=== PATIENT | male | born 1960 | race Caucasian/White ===

== ENCOUNTER 2019-03-31 21:37 | Inpatient (IN) ==
[2019-03-31] MEDS ORDERED: ASPIRIN 81 MG CHEW PO STA (22:11)
[2019-03-31] MEDS ORDERED: MoRPHine SULFATE 4 MG/ML 1 ML CARP\\VIAL IV STA (22:11)
[2019-03-31] MEDS ORDERED: NITROGLYCERIN SL 0.4 MG/TAB TAB SL STA ×3 (22:11→22:30)
[2019-03-31] MEDS ORDERED: CLOPIDOGREL BISULFATE 300 MG TAB PO STA (22:13)
[2019-03-31] MEDS ORDERED: HEPARIN IV BOLUS 5,000 UNITS in SYRINGE 0 ML IV ONE (22:15)
--- NOTE | 2019-03-31 22:21 | Emergency Department Note ---
History of Present Illness General Chief complaint: Chest Pain Stated complaint: CHEST PAIN, PRESSURE, SOB Time Seen by Provider: 03/31/19 22:06 History of Present Illness Maximum Pain Intensity: 8 This is a 58 year old male who presents to the ED via private vehicle with PMHx of Htn and DM, with complaints of "Chest pain". He has not felt well over the past few days and then this evening around 7pm he had chest pain that has gradually increased over time. He rates the pain as an 8/10. No hx of MN. No fevers or chills. He has never felt like this before. He notes minimal shortness of breath. It is substernal in nature and radiates to the bilateral shoulders. He notes that his blood pressures have been appropriate lately. Home Medications Home Medications Medication Instructions Recorded Confirmed Type acetaminophen [Tylenol Extra 500 mg PO DIRECTED PRN 03/31/19 03/31/19 History Strength] insulin glargine [Basaglar KwikPen 48 unit SUBCUT BID 03/31/19 03/31/19 History U-100 Insulin] lisinopril 10 mg PO QPM 03/31/19 03/31/19 History metformin 1,500 mg PO QAM 03/31/19 03/31/19 History rosuvastatin 20 mg PO QPM 03/31/19 03/31/19 History semaglutide [Ozempic] 0.5 mg SUBCUT WK 03/31/19 03/31/19 History Allergies Allergy/AdvReac Type Severity Reaction Status Date / Time No Known Allergies Allergy Verified 03/31/19 22:15 Past Med/Surg History Medical History Diabetes HTN (hypertension) Surgical History H/O colonoscopy Social History Preferred Language: Sami Communication Ability: Effective Unix Manager Required: No Beliefs That Will Affect Care: None Current Living Situation: Alone Other Information That Helps Us Care for You: No Feels Safe at Home: Yes Smoking Status: Never smoker Do You Dip or Chew Tobacco: No ; Second Hand Exposure: No ; Tobacco Cessation Education Requested by Patient: No Hx Alcohol Use: No Hx Substance Use: No Review of Systems A total of 10 systems reviewed and were otherwise negative Physical Exam Vital Signs Vital Signs - 24 hr 03/31/19 21:38 03/31/19 21:50 03/31/19 21:51 Temperature 36.8 C Temperature Source Oral Sepsis Recent Fever Within 48 Hours No Sepsis Action Taken by Nursing No Action Required Pulse Rate 59 L 99 H 103 H Pulse Rate from SpO2 Sensor 101 H 97 H Respiratory Rate 18 24 19 Respiratory Effort / Characteristics Non-Labored Respiratory Depth Normal Blood Pressure 202/125 H 218/127 H Blood Pressure Mean 150 157 Pulse Oximetry 95 96 97 Oxygen Delivery Method Room Air Oxygen Flow Rate 03/31/19 22:00 03/31/19 22:02 03/31/19 22:15 Temperature Temperature Source Sepsis Recent Fever Within 48 Hours Sepsis Action Taken by Nursing Pulse Rate 118 H 151 H 96 H Pulse Rate from SpO2 Sensor Respiratory Rate 28 H 26 H Respiratory Effort / Characteristics Respiratory Depth Blood Pressure 213/165 H 213/126 H 179/125 H Blood Pressure Mean 181 155 143 Pulse Oximetry 96 Oxygen Delivery Method Nasal Cannula Oxygen Flow Rate 2 03/31/19 22:30 03/31/19 23:29 Temperature Temperature Source Sepsis Recent Fever Within 48 Hours Sepsis Action Taken by Nursing Pulse Rate 101 H 86 Pulse Rate from SpO2 Sensor 95 H Respiratory Rate Respiratory Effort / Characteristics Respiratory Depth Blood Pressure 153/96 H 177/100 H Blood Pressure Mean 115 Pulse Oximetry 96 Oxygen Delivery Method Oxygen Flow Rate VITAL SIGNS - Vital signs and nursing notes were reviewed. Stable and afebrile. GENERAL -58-year-old male appearing his stated age who is in no acute distress but has some increased respirations, and appears to be in pain. Communicates well with provider and answers questions appropriately. SKIN - Without rashes. No meningeal or petechial rash. HEAD - NC/AT. EYES - PERRL with EOMI bilaterally. Sclera anicteric. EARS - No deformities of external structures noted on gross examination bilaterally. MOUTH/OROPHARYNX - Without perioral cyanosis. NECK - Neck with FROM. LUNGS - Chest wall symmetric without accessory muscle use, intercostals retractions, or central cyanosis. Normal vesicular breath sounds CTA B/L. No wheezes, rales, or rhonchi appreciated. CARDIAC - RRR with S1/S2. No murmur, rubs, or gallops appreciated. ABDOMEN - Abdominal contour normal without pulsations or visible masses. BS normoactive all four quadrants. EXTREMITIES - No clubbing or peripheral cyanosis. No pretibial edema present. +5/5 strength noted in UE/LE bilaterally. NEUROLOGIC - Cranial nerves II through XII grossly intact. Sensory intact to light touch throughout. PSYCH - A&O, and cooperates fully with examiner. Pt is very pleasant and interacts well with examiner. Course Administered Medications Sodium Chloride (Nss 1000ml) 1,000 mls @ 100 mls/hr IV .Q10H SHAUN Stop: 04/01/19 06:29 Last Admin: 04/01/19 00:45 Dose: 100 mls/hr Documented by: [id number] Metoprolol Tartrate (Lopressor) 25 mg PO BID SHAUN Stop: 04/30/19 23:29 Last Admin: 04/01/19 00:44 Dose: 25 mg Documented by: [id number] Discontinued Medications Aspirin (Aspirin Chew) 324 mg PO NOW STA Stop: 03/31/19 22:12 Last Admin: 03/31/19 22:18 Dose: 324 mg Documented by: [id number] Clopidogrel Bisulfate (Plavix) 600 mg PO NOW STA Stop: 03/31/19 22:14 Last Admin: 03/31/19 22:18 Dose: 600 mg Documented by: [id number] Fentanyl Citrate (Fentanyl Citrate) Confirm Administered Dose 100 mcg .ROUTE .STK-MED ONE Stop: 03/31/19 22:31 Last Admin: 03/31/19 23:25 Dose: 50 mcg Documented by: [id number] Heparin Sodium (Porcine) (Heparin Sodium (Porcine)) Confirm Administered Dose 5,000 units .ROUTE .STK-MED ONE Stop: 03/31/19 22:23 Last Admin: 03/31/19 22:24 Dose: Not Given Documented by: [id number] Heparin Sodium (Porcine) (Heparin Iv Bolus (D[employer] Packing Machine Feeder Use Only)) Confirm Administered Dose 10,000 units .ROUTE .STK-MED ONE Stop: 03/31/19 22:30 Last Admin: 03/31/19 23:24 Dose: 7,000 units Documented by: [id number] Heparin Sodium/Sodium Chloride (Heparin/Nss 1000 Unit/500ml Flush Bag) Confirm Administered Dose 3,000 units IV .STK-MED ONE Stop: 03/31/19 22:31 Last Admin: 03/31/19 23:28 Dose: 3,000 units Documented by: [id number] Heparin Sodium (Porcine) 5,000 (units/ Syringe) 5 mls @ 10 mls/min IV ONE ONE Stop: 03/31/19 22:16 Last Admin: 03/31/19 22:23 Dose: 10 mls/min Documented by: [id number] Cosigned by: [id number] Metoprolol Tartrate (Lopressor) Confirm Administered Dose 5 mg IV .STK-MED ONE Stop: 03/31/19 23:09 Last Admin: 03/31/19 23:29 Dose: 5 mg Documented by: [id number] Midazolam HCl (Versed) Confirm Administered Dose 2 mg .ROUTE .STK-MED ONE Stop: 03/31/19 22:31 Last Admin: 03/31/19 23:28 Dose: 2 mg Documented by: [id number] Midazolam HCl (Versed) Confirm Administered Dose 2 mg .ROUTE .STK-MED ONE Stop: 03/31/19 22:58 Last Admin: 03/31/19 23:30 Dose: Not Given Documented by: [id number] Morphine Sulfate (Morphine Sulfate) 4 mg IV NOW STA Stop: 03/31/19 22:12 Last Admin: 03/31/19 22:19 Dose: 4 mg Documented by: [id number] Nicardipine HCl (Cardene) Confirm Administered Dose 25 mg .ROUTE .STK-MED ONE Stop: 03/31/19 22:30 Last Admin: 03/31/19 23:29 Dose: 25 mg Documented by: [id number] Nitroglycerin (Nitrostat) 0.4 mg SL NOW STA Stop: 03/31/19 22:12 Last Admin: 03/31/19 22:17 Dose: 0.4 mg Documented by: [id number] Nitroglycerin (Nitrostat) 0.4 mg SL NOW STA Stop: 03/31/19 22:23 Last Admin: 03/31/19 22:26 Dose: 0.4 mg Documented by: [id number] Nitroglycerin (Nitrostat) 0.4 mg SL NOW STA Stop: 03/31/19 22:31 Last Admin: 03/31/19 22:31 Dose: 0.4 mg Documented by: [id number] Nitroglycerin/Dextrose (Nitroglycerin/D5w 100 Mcg/Ml 20ml Syringe) Confirm Administered Dose 2,000 mcg .ROUTE .STK-MED ONE Stop: 03/31/19 22:32 Last Admin: 03/31/19 23:28 Dose: 2,000 mcg Documented by: [id number] Ticagrelor (Brilinta) Confirm Administered Dose 180 mg PO .STK-MED ONE Stop: 03/31/19 23:24 Last Admin: 03/31/19 23:29 Dose: 180 mg Documented by: [id number] Medical Decision Making Laboratory Data Result diagrams: 04/01/19 04:12 04/01/19 04:12 Lab Results 03/31/19 03/31/19 03/31/19 Range/Units 22:14 22:14 22:14 WBC 13.39 H (4.8-10.8) K/uL RBC 5.35 (4.7-6.1) M/uL Hgb 17.0 (14.0-18.0) g/dL POC Hgb (14.0-18.0) g/dl Hct 48.4 (42-52) % POC Hct (42-52) % MCV 90.5 (80-100) fL MCH 31.8 (25-34) pg MCHC 35.1 (32-36) g/dL RDW Std Deviation 43.9 (36.4-46.3) fL RDW Coeff of Summer 13.2 (11.5-14.5) % Plt Count 265 (130-400) K/uL MPV 10.3 (7.4-10.4) fL Immature Gran % (Auto) 0.4 % Neut % (Auto) 67.8 % Lymph % (Auto) 24.0 % Beadle % (Auto) 6.9 % Eos % (Auto) 0.6 % Baso % (Auto) 0.3 % Immature Gran # (Auto) 0.05 H (0.00-0.02) K/uL Neut # (Auto) 9.08 H (1.4-6.5) K/uL Lymph # (Auto) 3.21 (1.2-3.4) K/uL Beadle # (Auto) 0.93 H (0.11-0.59) K/uL Eos # (Auto) 0.08 (0-0.5) K/uL Baso # (Auto) 0.04 (0-0.2) K/uL PT 10.6 (9.0-12.0) Seconds INR 1.0 (0.9-1.1) APTT 25.4 (21.0-31.0) Seconds PTT Ratio 0.9 POC Sodium (135-144) mEq/L Sodium 137 (136-145) mmol/L POC Potassium (3.3-5.0) mEq/L Potassium 3.6 (3.5-5.1) mmol/L POC Chloride (101-112) mEq/L Chloride 102 (98-107) mmol/L Carbon Dioxide 28 (21-32) mmol/L POC Total CO2 (24-31) mEq/l Anion Gap 7.0 (3-11) POC Anion Gap (16-25) mmol/L POC BUN (7-18) mg/dl BUN 18 (7-18) mg/dl Creatinine 0.94 (0.6-1.4) mg/dl POC Creatinine (0.6-1.3) mg/dl Est Cr Clr Drug Dosing 116.4 ml/min Est GFR ( Amer) 103.2 Est GFR (Non-Af Amer) 89.0 BUN/Creatinine Ratio 19.1 (10-20) Glucose 138 H (70-99) mg/dl POC Glucose (other) (70-99) mg/dl Calcium 10.2 H (8.5-10.1) mg/dl POC Ioniz Calcium Katharine (1.12-1.32) mmol/l Magnesium 2.0 (1.8-2.4) mg/dl Total Bilirubin 0.4 (0.2-1) mg/dl AST 21 (15-37) U/L ALT 31 (12-78) U/L Alkaline Phosphatase 79 (45-117) U/L Total Creatine Kinase 362 H (39-308) U/L CK-MB (CK-2) 9.6 H (0.5-3.6) ng/ml CK/CKMB % Calc 2.7 (0-3.0) POC Troponin I (0-0.045) ng/ml Troponin I 0.505 H* (0-0.045) ng/ml Total Protein 8.3 H (6.4-8.2) gm/dl Albumin 4.4 (3.4-5.0) gm/dl Globulin 3.9 (2.5-4.0) gm/dl Albumin/Globulin Ratio 1.1 (0.9-2) Lipase 92 (73-393) U/L TSH 2.060 (0.300-4.500) uIu/ml 03/31/19 03/31/19 Range/Units 22:29 22:32 WBC (4.8-10.8) K/uL RBC (4.7-6.1) M/uL Hgb (14.0-18.0) g/dL POC Hgb 16.0 (14.0-18.0) g/dl Hct (42-52) % POC Hct 47 (42-52) % MCV (80-100) fL MCH (25-34) pg MCHC (32-36) g/dL RDW Std Deviation (36.4-46.3) fL RDW Coeff of Summer (11.5-14.5) % Plt Count (130-400) K/uL MPV (7.4-10.4) fL Immature Gran % (Auto) % Neut % (Auto) % Lymph % (Auto) % Beadle % (Auto) % Eos % (Auto) % Baso % (Auto) % Immature Gran # (Auto) (0.00-0.02) K/uL Neut # (Auto) (1.4-6.5) K/uL Lymph # (Auto) (1.2-3.4) K/uL Beadle # (Auto) (0.11-0.59) K/uL Eos # (Auto) (0-0.5) K/uL Baso # (Auto) (0-0.2) K/uL PT (9.0-12.0) Seconds INR (0.9-1.1) APTT (21.0-31.0) Seconds PTT Ratio POC Sodium 138 (135-144) mEq/L Sodium (136-145) mmol/L POC Potassium 3.9 (3.3-5.0) mEq/L Potassium (3.5-5.1) mmol/L POC Chloride 101 (101-112) mEq/L Chloride (98-107) mmol/L Carbon Dioxide (21-32) mmol/L POC Total CO2 28 (24-31) mEq/l Anion Gap (3-11) POC Anion Gap 14.0 L (16-25) mmol/L POC BUN 22 H (7-18) mg/dl BUN (7-18) mg/dl Creatinine (0.6-1.4) mg/dl POC Creatinine 0.7 (0.6-1.3) mg/dl Est Cr Clr Drug Dosing ml/min Est GFR ( Amer) Est GFR (Non-Af Amer) BUN/Creatinine Ratio (10-20) Glucose (70-99) mg/dl POC Glucose (other) 155 H (70-99) mg/dl Calcium (8.5-10.1) mg/dl POC Ioniz Calcium Katharine 1.15 (1.12-1.32) mmol/l Magnesium (1.8-2.4) mg/dl Total Bilirubin (0.2-1) mg/dl AST (15-37) U/L ALT (12-78) U/L Alkaline Phosphatase (45-117) U/L Total Creatine Kinase (39-308) U/L CK-MB (CK-2) (0.5-3.6) ng/ml CK/CKMB % Calc (0-3.0) POC Troponin I 0.32 H (0-0.045) ng/ml Troponin I (0-0.045) ng/ml Total Protein (6.4-8.2) gm/dl Albumin (3.4-5.0) gm/dl Globulin (2.5-4.0) gm/dl Albumin/Globulin Ratio (0.9-2) Lipase (73-393) U/L TSH (0.300-4.500) uIu/ml Imaging Data Radiologist's Impression: XR chest 1V portable CLINICAL HISTORY: 58 years-old Male presenting with chest pain. TECHNIQUE: Portable upright AP view of the chest was obtained. COMPARISON: None. FINDINGS: Cardiac silhouette mildly enlarged. Pulmonary vascular prominence. Mild interstitial prominence. Mildly low lung volumes. No focal opacity. No large effusion or pneumothorax. Osseous structures normal. Upper abdomen normal. IMPRESSION: 1. Borderline cardiomegaly with volume overload and early congestive change. No zhao pulmonary edema. Electronically signed by: Abilio Lindsey M.D. 03/31/2019 10:[address] [facility] Narrative Patient was seen and evaluated as above in room C08. Review was performed of nursing notes and vital signs. As I was going to see the patient, I did retrieve the twelve-lead EKG on the chart and there were some peaked T waves in V1 through V6. Specifically, it was normal sinus rhythm at a rate of 94 bpm and when compared with previous the T wave amplitude was increased. Upon my entrance in the examination room, the patient appeared to be experiencing ST elevation on the monitor/rhythm lead. He was promptly moved to a larger resuscitation room and a heart alert was called. Repeat EKG showed normal sinus rhythm at a rate of 90 bpm. Acute MN noted. I did involve the attending soledad sician immediately upon identifying this emergent process, and he came to bedside. After obtaining a thorough history and physical examination the above work up was performed. He was medicated here with p.o. aspirin, Plavix, bolused with heparin and nitroglycerin x3. There was some improvement of his symptoms. Blood pressure improved as well. He was taken to the [facility] for further evaluation and management. Case was discussed with the attending physician. GCS: 15 In the evaluation and treatment of this patient, the following differential diagnoses were considered: MN, ASC, Dysrhythmia, Angina, Mediastinitis, GERD, Esophagitis, PE, Pneumonia, Bronchitis, Costochondritis, Rib Fracture, Zoster. Impression & Plan ST elevation (STEMI) myocardial infarction, Chest pain Critical Care Time Critical Care Time: Yes I have personally spent greater than 45 minutes of critical care time in the direct management of this patient. This includes bedside care, interpretation of diagnostic studies, and testing, discussion with consultants, patient, and family members, and other required patient management activities. This 45 minutes is in excess of all separately billable procedures. Discharge Plan Visit Data *Final* Discharge Date/Time: 03/31/19 23:35 Chief Complaint: Chest Pain Stated Complaint: CHEST PAIN, PRESSURE, SOB ED Provider: Emile Saleh ED Midlevel Provider: Erick Ramirez Discharge Problem: ST elevation (STEMI) myocardial infarction, Chest pain Patient Disposition: Admitted As Inpatient Condition: Good Discharge Instructions Interventions: ED Discharge Assessment Last Done: 03/31/19 22:43
[2019-03-31] MEDS ORDERED: HEPARIN SOD 5,000 UNIT/0.5 ML VIAL ONE (22:22)
[2019-03-31 22:25] LABS: Basophils # (auto) 0.04 K/uL (0-0.2); Basophils % (auto) 0.3 %; Eosinophils # (auto) 0.08 K/uL (0-0.5); Eosinophils % (auto) 0.6 %; Hematocrit (blood only) 48.4 % (42-52); Immature Granulocytes # (auto) 0.05 K/uL (0.00-0.02); Immature Granulocytes % (auto) 0.4 %; Lymphocytes # (auto) 3.21 K/uL (1.2-3.4); Mean Corpuscular Hemoglobin 31.8 pg (25-34); Mean Corpuscular Hgb Conc 35.1 g/dL (32-36); Mean Corpuscular Volume 90.5 fL (80-100); Mean Platelet Volume 10.3 fL (7.4-10.4); Monocytes # (auto) 0.93 K/uL (0.11-0.59); Monocytes % (auto) 6.9 %; Neutrophils # (auto) 9.08 K/uL (1.4-6.5); Neutrophils % (auto) 67.8 %; Platelet Count 265 K/uL (130-400); RDW Coefficient of Variation 13.2 % (11.5-14.5); RDW Standard Deviation 43.9 fL (36.4-46.3); Red Blood Count 5.35 M/uL (4.7-6.1); White Blood Count 13.39 K/uL (4.8-10.8)
--- NOTE | 2019-03-31 22:28 | XRay Report ---
XR chest 1V portable CLINICAL HISTORY: 58 years-old Male presenting with chest pain. TECHNIQUE: Portable upright AP view of the chest was obtained. COMPARISON: None. FINDINGS: Cardiac silhouette mildly enlarged. Pulmonary vascular prominence. Mild interstitial prominence. Mild ly low lung volumes. No focal opacity. No large effusion or pneumothorax. Osseous structures normal. Upper abdomen normal. IMPRESSION: 1. Borderline cardiomegaly with volume overload and early congestive change. No zhao pulmonary kera a. Electronically signed by: Abilio Lindsey M.D. 03/31/2019 10:26 PM
[2019-03-31] MEDS ORDERED: NiCARDipine HCL INJ 2.5 MG/ML 10 ML AMP ONE (22:29)
[2019-03-31] MEDS ORDERED: HEPARIN (PORCINE) 1000 UNIT/ML 10 ML (CATH LAB USE ONLY) ONE (22:29)
[2019-03-31] MEDS ORDERED: fentaNYL citrate 100 MCG/2 ML VIAL ONE (22:30)
[2019-03-31] MEDS ORDERED: MIDAZOLAM HCL 1 MG/ML 2ML VIAL ONE ×2 (22:30→22:57)
[2019-03-31] MEDS ORDERED: NITROGLYCERIN/D5W 100MCG/ML 20ML SYR ONE (22:31)
[2019-03-31 22:42] LABS: Albumin Level 4.4 gm/dl (3.4-5.0); BUN Creatinine Ratio 19.1 (10-20); Calcium 10.2 mg/dl (8.5-10.1); Creatinine Clr Calc Pharmacy 116.4 ml/min; Est GFR (African American) 103.2; Potassium 3.6 mmol/L (3.5-5.1)
[2019-03-31 22:46] LABS: iSTAT Creatinine 0.7 mg/dl (0.6-1.3); iSTAT Ionized Calcium 1.15 mmol/l (1.12-1.32); iSTAT Potassium 3.9 mEq/L (3.3-5.0)
--- NOTE | 2019-03-31 22:48 | Pre Anesthesia Assessment ---
Date of Service March 31, 2019 Pre Sedation Assessment Vital Signs Temp Pulse Resp BP Pulse Ox 03/31/19 22:30 101 H 153/96 H 96 03/31/19 22:15 96 H 179/125 H 96 03/31/19 22:02 151 H 26 H 213/126 H 03/31/19 22:00 118 H 28 H 213/165 H 03/31/19 21:51 103 H 19 97 03/31/19 21:50 99 H 24 218/127 H 96 03/31/19 21:38 36.8 C 59 L 18 202/125 H 95 Pre-Sedation Airway Assessment Smoking Status: Former smoker Notes The planned sedation has been discussed with the patient. Informed Consent was obtained. I have identified the patient, determined the appropriateness of sedation and have assessed the patient immediately prior to the procedure. All medicine(s) and interventions are by my order.
[2019-03-31 23:08] LABS: Albumin Globulin Ratio 1.1 (0.9-2); Bilirubin,Total 0.4 mg/dl (0.2-1); Creatine Kinase MB 9.6 ng/ml (0.5-3.6); Globulin 3.9 gm/dl (2.5-4.0); Partial Thromboplastin Ratio 0.9; Partial Thromboplastin Time 25.4 Seconds (21.0-31.0); Prothrombin Time 10.6 Seconds (9.0-12.0); Thyroid Stimulating Hormone 2.06 uIu/ml (0.300-4.500); Total Protein 8.3 gm/dl (6.4-8.2); Troponin I 0.505 ng/ml (0-0.045)
[2019-03-31] MEDS ORDERED: METOPROLOL TARTRATE 1 MG/ML VIAL IV ONE (23:08)
[2019-03-31] MEDS ORDERED: NITROGLYCERIN SL 0.4 MG/TAB TAB SL PRN (23:20)
[2019-03-31] MEDS ORDERED: TICAGRELOR 90 MG TAB PO ONE (23:23)
[2019-03-31] MEDS ORDERED: ATROPINE SULFATE 0.1 MG/ML 10ML SYR IV PRN (23:24)
[2019-03-31] MEDS ORDERED: ONDANSETRON INJ 2 MG/ML 2 ML VIAL IV PRN (23:24)
[2019-03-31] MEDS ORDERED: ICU PROTOCOL FOR HYPERGLYCEMIA PRN (23:24)
[2019-03-31] MEDS ORDERED: SODIUM CHLORIDE 0.9% 1000ML 1,000 ML IV SCH (23:30)
--- NOTE | 2019-04-01 00:21 | Emergency Department Note ---
ED Visit Note This is a 58-year-old male who presents to the ED with a chief complaint of chest pain that he has had for the past 3 days. It acutely worsened tonight around 7 PM. He came in for evaluation. He reports pressure in his chest as well as shortness of breath. His physical exam was unremarkable. Lungs are clear. Heart is regular rate and rhythm. Abdomen is soft and nontender. The patient was originally seen by physician marketing assistant Erick Ramirez. I became involved when he approached me concerned about the patient. His initial twelve- lead EKG showed a sinus rhythm with some peaking T waves in the anterior leads. A repeat twelve-lead EKG reveals ST elevations anteriorly. His chest x-ray did not show acute process. A troponin was 0.5. A heart alert was called after EKG showed STEMI . The patient was treated with sublingual nitro, p.o. aspirin, p.o. Plavix as well as IV heparin 5000 unit bolus. The nitroglycerin did help the pain somewhat. The patient was taken to the cardiac [facility] by the head bucker. .
--- NOTE | 2019-04-01 00:34 | Critical Care Consultation ---
Date of Consultation April 01, 2019 Assessment & Plan (1) ST elevation (STEMI) myocardial infarction: Reason Critically Ill: 58-year-old male presented with chest pain and found to have STEMI, now status post heart cath with stent placement to LAD Neuro - CAM ICU: Negative Cardiac - STEMIpatient was found to have anterior lateral lead ST elevation in the ED, given Plavix, ASA, morphine, heparin and taken to [facility] -Received stent x1 to the LAD with immediate improvement in chest pain and decreased ST elevation post-cath -Start on ASA, Brilinta, MTP, lisinopril, Lipitor -Trend troponin -Routine EKGs -Daily weights -Follow-up cardiac echo -Continuous monitor on telemetry HTNcontinue lisinopril and MTP HLDcontinue Lipitor, follow-up lipid panel Respiratory - Respiratory status stable on room air, continuous oxygen saturation monitoring GI - Heart healthy/diabetic diet RENAL/LYTES - Monitor routine BMPs, maximize electrolytes Normal saline 100 mL/h - Strict I's and O's ENDO - Diabetes type 2currently euglycemic -Follow-up hemoglobin A1c -Holding metformin, will transition to sliding scale -ICU hyperglycemic protocol HEME - H&H stable, monitor routine CBCs ID - No indication for infectious process at this time LINES/IV ACCESS - Peripheral IVs DVT PROPHYLAXIS - SCDs Thank you for allowing us to participate in the care of this patient. Please refer to my attending physician's documentation for any further recommendations. (2) Diabetes mellitus: (3) Obesity: (4) Hyperlipemia: (5) Hypertension: (6) Admitted to intensive care unit: History of Present Illness Attending Physician: Bryan Suarez DO History of Present Illness 58-year-old male with past medical history of HTN, DM II, HLD, obesity who p resented to the emergency department with complaints of ongoing chest pressure that has been intermittent throughout the past few days but had recently worsened and now rated 8 out of 10 this afternoon. In the emergency department he was found to have ST elevation in the anterior lateral leads and an elevated troponin. He was given ASA and heparin and taken to the [facility] where he received a stent to the LAD. He now presents to the ICU post heart cath with minimal chest discomfort rated 1 out of [address] elevation on EKG. He currently denies syncope or dizziness, shortness of breath, palpitations, nausea or vomiting, or abdominal pain. Patient to remain in ICU overnight for close observation following STEMI with stent to the LAD. Allergies Allergy/AdvReac Type Severity Reaction Status Date / Time No Known Allergies Allergy Verified 03/31/19 22:15 Home Medications Home Medications Medication Instructions Recorded Confirmed Type acetaminophen [Tylenol Extra 500 mg PO DIRECTED PRN 03/31/19 03/31/19 History Strength] insulin glargine [Basaglar KwikPen 48 unit SUBCUT BID 03/31/19 03/31/19 History U-100 Insulin] lisinopril 10 mg PO QPM 03/31/19 03/31/19 History metformin 1,500 mg PO QAM 03/31/19 03/31/19 History rosuvastatin 20 mg PO QPM 03/31/19 03/31/19 History semaglutide [Ozempic] 0.5 mg SUBCUT WK 03/31/19 03/31/19 History Patient History Medical History Diabetes HTN (hypertension) Surgical History H/O colonoscopy Social History Feels Safe at Home: Yes Smoking Status: Former smoker Hx Substance Use: No Review of Systems Review of Systems: All systems reviewed & are unremarkable except as noted in HPI & below Physical Exam Constitutional: + morbidly obese and comfortable Eyes: PERRL, conjunctivae normal, anicteric sclerae ENMT: external ear and nose normal, oropharynx normal Neck: trachea midline, no thyromegaly Respiratory: normal respiratory effort, lungs clear to auscultation Cardiovascular: RRR, no murmur, no edema Rate/Rhythm: regular rate and regular rhythm Heart Sounds: normal S1 and normal S2 Vessels: no JVD Extremities: normal capillary refill Gastrointestinal (Abdomen): normal bowel sounds, soft, nontender, no hepatosplenomegaly Musculoskeletal: no cyanosis or clubbing, extremities motor strength 5/5 Skin: no rashes, warm and dry Neurologic: PERRL, EOMI, accommodation nl, no face palsy, no dysarthria Psychiatric: A+Ox3, euthymic affect Results & Data Vital Signs (Past 12 Hours) Vital Signs Temp Pulse Resp BP Pulse Ox 03/31/19 23:29 86 177/100 H 03/31/19 22:30 101 H 153/96 H 96 03/31/19 22:15 96 H 179/125 H 96 03/31/19 22:02 151 H 26 H 213/126 H 03/31/19 22:00 118 H 28 H 213/165 H 03/31/19 21:51 103 H 19 97 03/31/19 21:50 99 H 24 218/127 H 96 03/31/19 21:38 36.8 C 59 L 18 202/125 H 95 Coding Level of Care Code 17229 Inpt Consult Level [address] elevation (STEMI) myocardial infarction I21.3 Diabetes mellitus E11.9 Obesity E66.9 Hyperlipemia E78.5 Hypertension I10 Admitted to intensive care unit Z78.9
[2019-04-01] MEDS: METOPROLOL TARTRATE 25 MG TAB PO SCH ×4 (00:44→20:52)
--- NOTE | 2019-04-01 04:02 | Operative Report ---
DATE OF OPERATION: 03/31/2019 INDICATIONS: Acute anterolateral ST elevated [place], presenting in 3-4 hours after onset of symptoms, early EKG changes and peak T waves, eventually showing hyperacute ST elevation in the anterolateral leads, 58-year-old hypertensive, diabetic, hypercholesterolemic male, not in congestive heart failure on presentation. PROCEDURE PERFORMED: Left heart catheterization, coronary cineangiography, PCI with drug-eluting stent x1, proximal left anterior descending artery radiologic interpretation and supervision. METHOD: Upon arrival in the aquatic life laborer, the patient was prepped and draped in the usual sterile fashion. After local infiltration with 2% lidocaine, a 6-Guinean sheath was placed in the right radial artery. Intra-arterial verapamil and nitroglycerin were administered. Intravenous heparin was administered and titrated to an ACT on the order of 250 seconds. A 0.014-inch Education Intern wire was advanced through the guiding catheter across the area of stenosis to the apical LAD. A 2.0 Mini Trek 15 angioplasty catheter positioned in the proximal left anterior descending artery, inflated to maximum pressure less than a minute. Balloon was withdrawn. A 3.0 Xience 15 stent was positioned in the proximal left anterior descending artery, inflated to maximum pressure for less than a minute. Balloon was withdrawn. Mid stented segment was postdilated using a 3.5 NC Trek 12 to maximum pressure for less than a minute. Balloon was withdrawn. Final cineangiograms were obtained. The wire was removed from the coronary artery, guiding catheter removed from the left main under fluoroscopic guidance from body over wire and sheath was aspirated and flushed. A 6-Guinean diagnostic JR4 was advanced over wire under fluoroscopic guidance to the central circulation where it was aspirated and flushed. After confirmation of adequate waveform, it was advanced into the right coronary artery. Cineangiograms of the right coronary artery obtained and reviewed. The catheter was used to cross the aortic valve in retrograde fashion. Left ventricular end diastolic pressure was measured. The catheter was removed from left ventricle to the aorta under continuous pressure monitoring removed from body over wire and sheath was aspirated and flushed. External compression device was deployed over the right radial artery. The patient returned to his room in good condition. COMPLICATIONS: None. FINDINGS: Left main is normal. Left anterior descending artery is moderate in caliber with a subtotal spontaneously dissected occlusion of the proximal left anterior descending artery. Left circumflex is moderate in caliber with no significant stenosis present. Circumflex posterolateral branches are free of significant disease. The right coronary artery, posterior descending artery, posterior extension of the right coronary, posterolateral branch arising from it were all free of significant disease. Left ventricular end diastolic pressure is elevated. No significant aortic valve gradient is demonstrated. Final cineangiograms demonstrate no residual stenosis, no uncovered dissection. MICA grade 3 flow in the left anterior descending artery. IMPRESSION: 1. Successful angioplasty drug-eluting stent placement. Recommendations were dual antiplatelet therapy for 1 year, DAPT score beyond that. 2. Routine medical therapy post-ST elevated myocardial infarction, evaluation of LV systolic function. I attest to the content of the Intraoperative Record and any orders documented therein. Any exception s are noted below.
[2019-04-01 04:29] LABS: Basophils # (auto) 0.02 K/uL (0-0.2); Basophils % (auto) 0.2 %; Eosinophils # (auto) 0.02 K/uL (0-0.5); Eosinophils % (auto) 0.2 %; Hematocrit (blood only) 45.2 % (42-52); Hemoglobin 15.8 g/dL (14.0-18.0); Immature Granulocytes # (auto) 0.04 K/uL (0.00-0.02); Immature Granulocytes % (auto) 0.3 %; Lymphocytes # (auto) 1.93 K/uL (1.2-3.4); Lymphocytes % (auto) 14.7 %; Mean Corpuscular Hemoglobin 31.7 pg (25-34); Mean Corpuscular Volume 90.6 fL (80-100); Mean Platelet Volume 10.3 fL (7.4-10.4); Monocytes % (auto) 6.9 %; Neutrophils # (auto) 10.18 K/uL (1.4-6.5); Neutrophils % (auto) 77.7 %; Platelet Count 216 K/uL (130-400); RDW Coefficient of Variation 13.1 % (11.5-14.5); RDW Standard Deviation 43.4 fL (36.4-46.3); Red Blood Count 4.99 M/uL (4.7-6.1); White Blood Count 13.09 K/uL (4.8-10.8)
[2019-04-01 04:52] LABS: Bilirubin Direct 0.2 mg/dl (0-0.2); Calcium 9.2 mg/dl (8.5-10.1); Creatinine Clr Calc Pharmacy 170.6 ml/min; Est GFR (African American) 125.1; Est GFR (Non-African American) 107.9
[2019-04-01 04:57] LABS: Bilirubin,Total 0.6 mg/dl (0.2-1); Phosphorus 3.5 mg/dl (2.5-4.9); Total Protein 7.6 gm/dl (6.4-8.2); Troponin I 37.1 ng/ml (0-0.045)
[2019-04-01 06:15] LABS: Appearance Urine Clear (Clear); Bilirubin Urine Negative (Negative); Blood Urine Negative (Negative); Color Urine Yellow; Glucose Urine UA Negative (Negative); Ketones Urine 1+ (Negative); Leukocyte Esterase Urine Negative (Negative); Nitrite Urine Negative (Negative); Protein Urine Negative (Negative); Specific Gravity Urine 1.037 (1.000-1.030); Urobilinogen Urine Negative (Negative); pH Urine 6.5 (4.5-7.5)
[2019-04-01 06:47] LABS: Estimated Average Glucose 131 mg/dl; Hemoglobin A1C 6.2 % (4.5-5.6)
[2019-04-01] MEDS ORDERED: lisinopriL 5 MG TAB PO SCH (09:00)
[2019-04-01] MEDS: TICAGRELOR 90 MG TAB PO SCH ×2 (09:06→20:52)
[2019-04-01] MEDS: ATORVASTATIN 40 MG TAB PO SCH (09:06)
[2019-04-01] MEDS: ASPIRIN 81 MG ECTAB PO SCH (09:06)
--- NOTE | 2019-04-01 09:06 | Cardiology Consultation ---
Date of Consultation April 01, 2019 Assessment & Plan (1) ST elevation (STEMI) myocardial infarction: 58-year-old male with cardiac risk factors as outlined who presented with stuttering chest discomfort of 3 to 4 days duration and clinical and EKG had evidence of acute anteroseptal myocardial infarction in ER with duration of severe symptoms of 3 to 4 hours Cardiac catheterization demonstrated single-vessel occlusive disease with proximal LAD occlusion and underwent successful coronary intervention Plan optimization of cardiac medications Continue antiplatelet therapy with Brilinta and aspirin, heart rate and blood pressure slightly elevated today we will increase metoprolol to 25 mg 3 times daily, lisinopril to 5 mill grams twice daily Echocardiogram be reviewed as available Gradual increase activities with patient on monitor in hospital Would maintain in hospital at least additional 24 to 48 hours given current hemodynamics, level of troponin rise and nonsustained VT on telemetry last evening Addendum: Echocardiogram reviewed demonstrating significant septal and apical area of severe hypokinesis to akinesis with expansion of the septum and apex EF 35 to 40% Blood pressure still elevated We will continue medications as ordered with addition of topical nitrates for hypertension control anticipate at least additional 48 hours hospital stay (2) Hypertension: (3) Hyperlipemia: History of Present Illness Reason for Consultation: ST elevation myocardial infarction Requesting Physician: Dr. Suarez Attending Physician: Bryan Suarez, DO History of Present Illness Patient is a 58-year-old male without prior history of cardiac disease but underlying cardiac risk factors of hypertension diabetes hyperlipidemia. Patient presents this admission having noted stuttering chest discomfort of proximally 3 days duration culminating a severe episode of chest pain pressure approximately 3 hours prior to ER presentation. In the emergency room he was noted to have dynamic EKG changes with hyperdynamic T waves with ultimately progressing to ST elevation. Patient is taking emergently and appropriately to the diagnostic cardiac catheterization lab were proximal LAD occlusion was observed. Patient received a drug-eluting stent successfully and is referred now for further management. Patient denies prior history of myocardial infarction angina congestive heart failure. Notes no history of TIA or stroke. Notes no history of tachypalpit ations syncope or near syncope. No bleeding difficulties melena hematochezia dysuria hematuria. Appetite and weighted been stable with weight trending upward slightly. Sugars are generally controlled. He is relatively sedentary about his home. Works at [employer] and is on his feet for most of his shift with mild exertional activity at work. Denies recent fevers chills sweats cough hoarseness wheeze or hemoptysis Denies any sleep disturbances Telemetry demonstrates some short run of ventricular tachycardia last evening, heart rate and blood pressure relatively elevated this morning Allergies Allergy/AdvReac Type Severity Reaction Status Date / Time No Known Allergies Allergy Verified 03/31/19 22:15 Home Medications Home Medications Medication Instructions Recorded Confirmed Type acetaminophen [Tylenol Extra 500 mg PO DIRECTED PRN 03/31/19 03/31/19 History Strength] insulin glargine [Basaglar KwikPen 48 unit SUBCUT BID 03/31/19 03/31/19 History U-100 Insulin] lisinopril 10 mg PO QPM 03/31/19 03/31/19 History metformin 1,500 mg PO QAM 03/31/19 03/31/19 History rosuvastatin 20 mg PO QPM 03/31/19 03/31/19 History semaglutide [Ozempic] 0.5 mg SUBCUT WK 03/31/19 03/31/19 History Patient History Medical History Diabetes HTN (hypertension) Surgical History H/O colonoscopy Social History Preferred Language: Swedish Communication Ability: Effective Stocklayer Required: No Beliefs That Will Affect Care: None Current Living Situation: Alone Other Information That Helps Us Care for You: No Feels Safe at Home: Yes Smoking Status: Never smoker Do You Dip or Chew Tobacco: No ; Second Hand Exposure: No ; Tobacco Cessation Education Requested by Patient: No Hx Alcohol Use: No Hx Substance Use: No Review of Systems Review of Systems: All systems reviewed & are unremarkable except as noted in HPI & below Physical Exam Constitutional: WD/WN, vitals as above + obese; no acute distress Eyes: PERRL, conjunctivae normal, anicteric sclerae ENMT: external ear and nose normal, oropharynx normal Neck: trachea midline, no thyromegaly + thick neck Respiratory: normal respiratory effort, lungs clear to auscultation Cardiovascular: Rate/Rhythm: regular rate and regular rhythm Heart Sounds: normal S1 and normal S2; no gallop and no murmur Palpation: normal PMI Vessels: normal carotid upstroke and radial pulses present (Radial access site healing); no JVD and no carotid bruit Extremities: no edema Gastrointestinal (Abdomen): normal bowel sounds, soft, nontender, no hepatosplenomegaly Musculoskeletal: no cyanosis or clubbing, extremities motor strength 5/5 Skin: no rashes, warm and dry Neurologic: PERRL, EOMI, accommodation nl, no face palsy, no dysarthria Psychiatric: A+Ox3, euthymic affect Results & Data Vital Signs (Past 12 Hours) Vital Signs Temp Pulse Pulse Resp BP BP Pulse Ox 04/01/19 06:01 83 24 95 04/01/19 06:00 81 22 146/94 H 95 04/01/19 05:30 82 18 95 04/01/19 05:06 37.2 C 04/01/19 05:00 83 23 132/91 96 04/01/19 04:46 84 24 96 04/01/19 04:45 37.2 C 85 23 130/87 95 04/01/19 04:44 86 23 95 04/01/19 04:30 91 H 22 95 04/01/19 04:06 37.2 C 04/01/19 03:48 37.2 C 04/01/19 03:30 86 17 158/105 H 95 04/01/19 03:15 88 21 171/109 H 95 04/01/19 03:00 37.2 C 89 1 L 166/107 H 95 04/01/19 02:45 92 H 24 162/106 H 95 04/01/19 02:30 102 H 20 178/121 H 96 04/01/19 02:15 87 23 158/102 H 94 04/01/19 02:00 37.2 C 89 21 166/105 H 95 04/01/19 01:45 86 23 158/104 H 91 04/01/19 01:31 87 21 96 04/01/19 01:30 86 35 H 162/109 H 97 04/01/19 01:16 86 16 97 04/01/19 01:15 86 18 157/105 H 98 04/01/19 01:08 37.1 C 97 H 18 139/107 H 94 04/01/19 01:06 37.2 C 88 H 163/107 H 97 04/01/19 01:01 87 24 98 04/01/19 01:00 37.2 C 90 87 16 164/105 H 165/103 H 98 04/01/19 00:51 85 20 96 04/01/19 00:45 37.2 C 84 20 163/100 H 97 04/01/19 00:36 37.2 C 87 14 164/105 H 96 04/01/19 00:06 14 164/107 H 04/01/19 00:01 37.2 C 03/31/19 23:29 86 177/100 H 03/31/19 22:30 101 H 153/96 H 96 03/31/19 22:15 96 H 179/125 H 96 03/31/19 22:02 151 H 26 H 213/126 H 03/31/19 22:00 118 H 28 H 213/165 H 03/31/19 21:51 103 H 19 97 03/31/19 21:50 99 H 24 218/127 H 96 03/31/19 21:38 36.8 C 59 L 18 202/125 H 95 Laboratory Results Laboratory Results - last 24 hr 03/31/19 03/31/19 03/31/19 22:14 22:14 22:14 WBC 13.39 H RBC 5.35 Hgb 17.0 POC Hgb Hct 48.4 POC Hct MCV 90.5 MCH 31.8 MCHC 35.1 RDW Std Deviation 43.9 RDW Coeff of Summer 13.2 Plt Count 265 MPV 10.3 Immature Gran % (Auto) 0.4 Neut % (Auto) 67.8 Lymph % (Auto) 24.0 Tucker % (Auto) 6.9 Eos % (Auto) 0.6 Baso % (Auto) 0.3 Immature Gran # (Auto) 0.05 H Neut # (Auto) 9.08 H Lymph # (Auto) 3.21 Tucker # (Auto) 0.93 H Eos # (Auto) 0.08 Baso # (Auto) 0.04 PT 10.6 INR 1.0 APTT 25.4 PTT Ratio 0.9 POC Sodium Sodium 137 POC Potassium Potassium 3.6 POC Chloride Chloride 102 Carbon Dioxide 28 POC Total CO2 Anion Gap 7.0 POC Anion Gap POC BUN BUN 18 Creatinine 0.94 POC Creatinine Est Cr Clr Drug Dosing 116.4 Est GFR ( Amer) 103.2 Est GFR (Non-Af Amer) 89.0 BUN/Creatinine Ratio 19.1 Glucose 138 H POC Glucose POC Glucose (other) Estimat Average Glucose Hemoglobin A1c Calcium 10.2 H POC Ioniz Calcium Katharine Phosphorus Magnesium 2.0 Total Bilirubin 0.4 Direct Bilirubin AST 21 ALT 31 Alkaline Phosphatase 79 Total Creatine Kinase 362 H CK-MB (CK-2) 9.6 H CK/CKMB % Calc 2.7 POC Troponin I Troponin I 0.505 H* Total Protein 8.3 H Albumin 4.4 Globulin 3.9 Albumin/Globulin Ratio 1.1 LDL Cholesterol Direct Lipase 92 TSH 2.060 Urine Color Urine Appearance Urine pH Ur Specific [place] Urine Protein Urine Glucose (UA) Urine Ketones Urine Blood Urine Nitrite Urine Bilirubin Urine Urobilinogen Ur Leukocyte Esterase Nasal Screen MRSA (PCR) Hepatitis C Ab Screen 03/31/19 03/31/19 04/01/19 22:29 22:32 00:02 WBC RBC Hgb POC Hgb 16.0 Hct POC Hct 47 MCV MCH MCHC RDW Std Deviation RDW Coeff of Summer Plt Count MPV Immature Gran % (Auto) Neut % (Auto) Lymph % (Auto) Tucker % (Auto) Eos % (Auto) Baso % (Auto) Immature Gran # (Auto) Neut # (Auto) Lymph # (Auto) Tucker # (Auto) Eos # (Auto) Baso # (Auto) PT INR APTT PTT Ratio POC Sodium 138 Sodium POC Potassium 3.9 Potassium POC Chloride 101 Chloride Carbon Dioxide POC Total CO2 28 Anion Gap POC Anion Gap 14.0 L POC BUN 22 H BUN Creatinine POC Creatinine 0.7 Est Cr Clr Drug Dosing Est GFR ( Amer) Est GFR (Non-Af Amer) BUN/Creatinine Ratio Glucose POC Glucose POC Glucose (other) 155 H Estimat Average Glucose Hemoglobin A1c Calcium POC Ioniz Calcium Katharine 1.15 Phosphorus Magnesium Total Bilirubin Direct Bilirubin AST ALT Alkaline Phosphatase Total Creatine Kinase CK-MB (CK-2) CK/CKMB % Calc POC Troponin I 0.32 H Troponin I Total Protein Albumin Globulin Albumin/Globulin Ratio LDL Cholesterol Direct Lipase TSH Urine Color Urine Appearance Urine pH Ur Specific [place] Urine Protein Urine Glucose (UA) Urine Ketones Urine Blood Urine Nitrite Urine Bilirubin Urine Urobilinogen Ur Leukocyte Esterase Nasal Screen MRSA (PCR) Negative Hepatitis C Ab Screen 04/01/19 04/01/19 04/01/19 00:07 00:07 00:52 WBC RBC Hgb POC Hgb Hct POC Hct MCV MCH MCHC RDW Std Deviation RDW Coeff of Summer Plt Count MPV Immature Gran % (Auto) Neut % (Auto) Lymph % (Auto) Tucker % (Auto) Eos % (Auto) Baso % (Auto) Immature Gran # (Auto) Neut # (Auto) Lymph # (Auto) Tucker # (Auto) Eos # (Auto) Baso # (Auto) PT INR APTT PTT Ratio POC Sodium Sodium POC Potassium Potassium POC Chloride Chloride Carbon Dioxide POC Total CO2 Anion Gap POC Anion Gap POC BUN BUN Creatinine POC Creatinine Est Cr Clr Drug Dosing Est GFR ( Amer) Est GFR (Non-Af Amer) BUN/Creatinine Ratio Glucose POC Glucose 121 H POC Glucose (other) Estimat Average Glucose 131 Hemoglobin A1c 6.2 H Calcium POC Ioniz Calcium Katharine Phosphorus Magnesium Total Bilirubin Direct Bilirubin AST ALT Alkaline Phosphatase Total Creatine Kinase CK-MB (CK-2) CK/CKMB % Calc POC Troponin I Troponin I Total Protein Albumin Globulin Albumin/Globulin Ratio LDL Cholesterol Direct 87 Lipase TSH Urine Color Urine Appearance Urine pH Ur Specific [place] Urine Protein Urine Glucose (UA) Urine Ketones Urine Blood Urine Nitrite Urine Bilirubin Urine Urobilinogen Ur Leukocyte Esterase Nasal Screen MRSA (PCR) Hepatitis C Ab Screen 04/01/19 04/01/19 04/01/19 04:12 04:12 04:12 WBC 13.09 H RBC 4.99 Hgb 15.8 POC Hgb Hct 45.2 POC Hct MCV 90.6 MCH 31.7 MCHC 35.0 RDW Std Deviation 43.4 RDW Coeff of Summer 13.1 Plt Count 216 MPV 10.3 Immature Gran % (Auto) 0.3 Neut % (Auto) 77.7 Lymph % (Auto) 14.7 Tucker % (Auto) 6.9 Eos % (Auto) 0.2 Baso % (Auto) 0.2 Immature Gran # (Auto) 0.04 H Neut # (Auto) 10.18 H Lymph # (Auto) 1.93 Tucker # (Auto) 0.90 H Eos # (Auto) 0.02 Baso # (Auto) 0.02 PT INR APTT PTT Ratio POC Sodium Sodium 137 POC Potassium Potassium 4.0 POC Chloride Chloride 104 Carbon Dioxide 26 POC Total CO2 Anion Gap 7.0 POC Anion Gap POC BUN BUN 15 Creatinine 0.64 D POC Creatinine Est Cr Clr Drug Dosing 170.6 Est GFR ( Amer) 125.1 Est GFR (Non-Af Amer) 107.9 BUN/Creatinine Ratio 23.0 H Glucose 97 POC Glucose POC Glucose (other) Estimat Average Glucose Hemoglobin A1c Calcium 9.2 POC Ioniz Calcium Katharine Phosphorus 3.5 Magnesium 2.0 Total Bilirubin 0.6 Direct Bilirubin 0.2 AST 113 H ALT 40 Alkaline Phosphatase 67 Total Creatine Kinase CK-MB (CK-2) CK/CKMB % Calc POC Troponin I Troponin I 37.100 H* Total Protein 7.6 Albumin 4.0 Globulin Albumin/Globulin Ratio LDL Cholesterol Direct Lipase TSH Urine Color Urine Appearance Urine pH Ur Specific [place] Urine Protein Urine Glucose (UA) Urine Ketones Urine Blood Urine Nitrite Urine Bilirubin Urine Urobilinogen Ur Leukocyte Esterase Nasal Screen MRSA (PCR) Hepatitis C Ab Screen Neg 04/01/19 04/01/19 05:34 06:42 WBC RBC Hgb POC Hgb Hct POC Hct MCV MCH MCHC RDW Std Deviation RDW Coeff of Summer Plt Count MPV Immature Gran % (Auto) Neut % (Auto) Lymph % (Auto) Tucker % (Auto) Eos % (Auto) Baso % (Auto) Immature Gran # (Auto) Neut # (Auto) Lymph # (Auto) Tucker # (Auto) Eos # (Auto) Baso # (Auto) PT INR APTT PTT Ratio POC Sodium Sodium POC Potassium Potassium POC Chloride Chloride Carbon Dioxide POC Total CO2 Anion Gap POC Anion Gap POC BUN BUN Creatinine POC Creatinine Est Cr Clr Drug Dosing Est GFR ( Amer) Est GFR (Non-Af Amer) BUN/Creatinine Ratio Glucose POC Glucose 104 H POC Glucose (other) Estimat Average Glucose Hemoglobin A1c Calcium POC Ioniz Calcium Katharine Phosphorus Magnesium Total Bilirubin Direct Bilirubin AST ALT Alkaline Phosphatase Total Creatine Kinase CK-MB (CK-2) CK/CKMB % Calc POC Troponin I Troponin I Total Protein Albumin Globulin Albumin/Globulin Ratio LDL Cholesterol Direct Lipase TSH Urine Color Yellow Urine Appearance Clear Urine pH 6.5 Ur Specific [place] 1.037 H Urine Protein Negative Urine Glucose (UA) Negative Urine Ketones 1+ H Urine Blood Negative Urine Nitrite Negative Urine Bilirubin Negative Urine Urobilinogen Negative Ur Leukocyte Esterase Negative Nasal Screen MRSA (PCR) Hepatitis C Ab Screen Diagnostic Findings EKG this morning sinus rhythm with anteroseptal Q waves consistent with evolving myocardial infarction Echocardiogram pending
[2019-04-01] MEDS: lisinopriL 5 MG TAB PO SCH ×2 (09:26→20:53)
[2019-04-01] MEDS: INSULIN GLARGINE SOLOSTAR 100 UNITS/ML 3 ML PEN SC SCH ×2 (11:24→20:56)
[2019-04-01] MEDS: INSULIN ASPART 100 UNITS/ML 3 ML PEN SC SCH ×3 (14:33→20:55)
[2019-04-01] MEDS: NITROGLYCERIN 2% OINTMENT 30GM TUBE EXT SCH ×2 (14:42→20:49)
[2019-04-01] MEDS: ACETAMINOPHEN 325 MG TAB PO PRN (14:43)
--- NOTE | 2019-04-01 16:58 | Hospitalist Progress Note ---
Date of Service April 01, 2019 Assessment & Plan (1) ST elevation (STEMI) myocardial infarction: STEMI on 03/31/19 S/P Cardiac cath, S/P DAVID to LAD on 03/31/19 04/01/19 Echo: Moderate concentric LVH; apical, septal, anteroseptal, anterior, & inferior wall motion abnormality with hypokinesis to akinesis of the segments; mild septal & apical expansion, basilar section contract normally; EF: 35-40% Cardiology on board, appreciate recommendations: Have increased metoprolol to 25 mg 3 times daily Changed lisinopril from 10mg daily to 5mg BID On Brilinta, aspirin, statin Nitropaste Stable for transfer from ICU to PCU No current CP or SOB (2) Hypertension: BP has been elevated Cardiology increased metoprolol to 25mg TID, changed lisinopril from 10mg daily to 5mg BID Nitropaste currently (3) Hyperlipemia: Continue statin (4) Diabetes mellitus: DM II A1c: 6.2 on 04/01/19 -Hold home metformin, Ozempic, Basaglar -Basal insulin, Novolog sliding scale per protocol DVT Prophylaxis -SCDs Pt was seen and care coordinated with Dr Reilly. See addendum Supervising Physician Co-Signing Physician Notes Attending Addendum: care coordinated with YEIMI Hansen please refer to her notes for full details, I agree with her notes patient seen and examined, records reviewed by myself as well on exam, patient seen sitting up in bed, comfortable, just had dinner chest pain free, no dyspnea, dizziness, palpitations states he feels much better no other symptoms VS noted and reviewed oriented x3 , not in distress, speaks in sentences with no effort nor accessory muscle use normal rate, regular rhythm, no murmurs clear breath sounds bilaterally non distended, soft, nontender no bipedal edema, erythema, warmth no neuro deficits Crea 0.64 trop 27 ASSESSMENT AND PLAN STEMI transfer of service from Technology Sales Representative to Hospitalist service chest pain free, stable overall Metoprolol, Lisinopril being titrated on ASA, Brillinta, Lipitor HTN Nitropaste added monitor other diagnoses and plan of care as per YEIMI Hansen notes Jose Reilly MD Subjective Pt seen and examined. Sitting up eating dinner. Reports currently is feeling good. Denies any CP, SOB, dizziness, palpitations, N/V. Reports small BM this m orning. Denies fever/chills, diaphoresis, diarrhea, ELISE, syncope, vision changes, neck pain, orthopnea, cough, sore throat, choking, otalgia, rhinorrhea, abdominal pain, paresthesias, weakness, extremity weakness, extremity edema, rashes, urinary symptoms. Review of Systems Review of Systems: All systems reviewed & are unremarkable except as noted in HPI & below Physical Exam Physical Exam: General: no acute distress, obese Head: normocephalic, atraumatic Eyes: PERRL, EOM's intact, conjunctiva non-injected, anicteric ENT: normal inspection external ears, nose, mucous membranes moist Neck: supple, trachea midline Lungs: clear, no respiratory distress, no wheezing/rhonchi/rales CV: RRR, no murmur, no pretibial edema Abd: normal BS, soft, non-tender Ext: no cyanosis, no calf tenderness Neuro: A&O x 3, no focal deficits noted, normal affect Skin: warm, dry, right wrist with dressing in place is dry and intact Results & Data Vital Signs (Past 12 Hours) Vital Signs Temp Pulse Resp BP Pulse Ox 04/01/19 12:00 37.5 C 80 10 L 160/106 H 97 04/01/19 11:00 79 14 124/71 97 04/01/19 10:00 89 11 L 133/91 98 04/01/19 09:00 88 25 H 146/92 H 97 04/01/19 08:00 86 24 147/94 H 97 04/01/19 07:00 79 139/90 95 04/01/19 06:01 83 24 95 04/01/19 06:00 81 22 146/94 H 95 04/01/19 05:30 82 18 95 04/01/19 05:06 37.2 C 04/01/19 05:00 83 23 132/91 96 Laboratory Results Short CBC 03/31/19 04/01/19 Range/Units 22:14 04:12 WBC 13.39 H 13.09 H (4.8-10.8) K/uL Hgb 17.0 15.8 (14.0-18.0) g/dL Hct 48.4 45.2 (42-52) % Plt Count 265 216 (130-400) K/uL BMP 03/31/19 04/01/19 22:14 04:12 Sodium 137 137 Potassium 3.6 4.0 Chloride 102 104 Carbon Dioxide 28 26 BUN 18 15 Creatinine 0.94 0.64 D Glucose 138 H 97 Calcium 10.2 H 9.2 Cardiac Enzymes 03/31/19 04/01/19 04/01/19 Range/Units 22:14 04:12 09:57 Total Creatine Kinase 362 H (39-308) U/L CK-MB (CK-2) 9.6 H (0.5-3.6) ng/ml Troponin I 0.505 H* 37.100 H* 27.300 H* (0-0.045) ng/ml Liver Function 03/31/19 04/01/19 Range/Units 22:14 04:12 Total Bilirubin 0.4 0.6 (0.2-1) mg/dl Direct Bilirubin 0.2 (0-0.2) mg/dl AST 21 113 H (15-37) U/L ALT 31 40 (12-78) U/L Alkaline Phosphatase 79 67 (45-117) U/L Albumin 4.4 4.0 (3.4-5.0) gm/dl Urine 04/01/19 Range/Units 05:34 Urine Color Yellow Urine Appearance Clear (Clear) Urine pH 6.5 (4.5-7.5) Ur Specific [place] 1.037 H (1.000-1.030) Urine Protein Negative (Negative) Urine Glucose (UA) Negative (Negative)
[2019-04-02] MEDS: ACETAMINOPHEN 325 MG TAB PO PRN (00:23)
[2019-04-02] MEDS: NITROGLYCERIN 2% OINTMENT 30GM TUBE EXT SCH ×2 (01:47→08:00)
[2019-04-02 05:46] LABS: Hematocrit (blood only) 43.5 % (42-52); Hemoglobin 14.7 g/dL (14.0-18.0); Mean Corpuscular Hemoglobin 31.1 pg (25-34); Mean Corpuscular Hgb Conc 33.8 g/dL (32-36); Mean Platelet Volume 10.3 fL (7.4-10.4); Platelet Count 182 K/uL (130-400); RDW Coefficient of Variation 13.5 % (11.5-14.5); RDW Standard Deviation 45.7 fL (36.4-46.3); Red Blood Count 4.73 M/uL (4.7-6.1); White Blood Count 9.83 K/uL (4.8-10.8)
[2019-04-02 06:19] LABS: BUN Creatinine Ratio 24.7 (10-20); Calcium 9.2 mg/dl (8.5-10.1); Creatinine Clr Calc Pharmacy 167.6 ml/min; Est GFR (African American) 124.3; Est GFR (Non-African American) 107.2; Potassium 3.8 mmol/L (3.5-5.1)
[2019-04-02] MEDS: ASPIRIN 81 MG ECTAB PO SCH (08:00)
[2019-04-02] MEDS: INSULIN GLARGINE SOLOSTAR 100 UNITS/ML 3 ML PEN SC SCH (08:01)
[2019-04-02] MEDS: TICAGRELOR 90 MG TAB PO SCH ×2 (08:02→22:01)
[2019-04-02] MEDS: ATORVASTATIN 40 MG TAB PO SCH (08:02)
[2019-04-02] MEDS: lisinopriL 5 MG TAB PO SCH ×2 (08:03→22:00)
[2019-04-02] MEDS: INSULIN ASPART 100 UNITS/ML 3 ML PEN SC SCH ×4 (08:04→21:00)
[2019-04-02] MEDS: METOPROLOL TARTRATE 25 MG TAB PO SCH (08:04)
--- NOTE | 2019-04-02 09:57 | History & Physical Report ---
Date of Service April 01, 2019 This H&P from March Assessment & Plan (1) ST elevation (STEMI) myocardial infarction: STEMI on 03/31/19 S/P Cardiac cath, S/P DAVID to LAD on 03/31/19 04/01/19 Echo: Moderate concentric LVH; apical, septal, anteroseptal, anterior, & inferior wall motion abnormality with hypokinesis to akinesis of the segments; mild septal & apical expansion, basilar section contract normally; EF: 35-40% Cardiology on board, appreciate recommendations: Have increased metoprolol to 25 mg 3 times daily Changed lisinopril from 10mg daily to 5mg BID On Brilinta, aspirin, statin Nitropaste Stable for transfer from ICU to PCU No current CP or SOB (2) Hypertension: BP has been elevated Cardiology increased metoprolol to 25mg TID, changed lisinopril from 10mg daily to 5mg BID Nitropaste currently (3) Hyperlipemia: Continue statin (4) Diabetes mellitus: DM II A1c: 6.2 on 04/01/19 -Hold home metformin, Ozempic, Basaglar -Basal insulin, Novolog sliding scale per protocol DVT Prophylaxis -SCDs Pt was seen and care coordinated with Dr Reilly. See addendum History of Present Illness Chief Complaint: CP Primary Care Provider: Omar Bonner MD Pt is 58 y/o M with PMH HTN, dyslipidemia, DM II who had presented to ER on 03/31/19 for CP and found to have STEMI and was taking emergently to concrete plant laborer. S/P DAVID to LAD. Today 04/01/19, Pt seen and examined. Sitting up eating dinner. Reports currently is feeling good. Denies any CP, SOB, dizziness, palpitations, N/V. Reports small BM this morning. Denies fever/chills, diaphoresis, diarrhea, ELISE, syncope, vision changes, neck pain, orthopnea, cough, sore throat, choking, otalgia, rhinorrhea, abdominal pain, paresthesias, weakness, extremity weakness, extremity edema, rashes, urinary symptoms. Allergies Allergy/AdvReac Type Severity Reaction Status Date / Time No Known Allergies Allergy Verified 03/31/19 22:15 Home Medications Home Medications Medication Instructions Recorded Confirmed Type acetaminophen [Tylenol Extra 500 mg PO DIRECTED PRN 03/31/19 03/31/19 History Strength] insulin glargine [Basaglar KwikPen 48 unit SUBCUT BID 03/31/19 03/31/19 History U-100 Insulin] lisinopril 10 mg PO QPM 03/31/19 03/31/19 History metformin 1,500 mg PO QAM 03/31/19 03/31/19 History rosuvastatin 20 mg PO QPM 03/31/19 03/31/19 History semaglutide [Ozempic] 0.5 mg SUBCUT WK 03/31/19 03/31/19 History Past Med/Surg History Medical History Hypertension (Chronic) Hyperlipemia (Chronic) Obesity (Chronic) Diabetes mellitus (Chronic) Diabetes HTN (hypertension) Surgical History History of eye surgery (Chronic) H/O colonoscopy Social History Preferred Language: Kinyarwanda Communication Ability: Effective Supervisor [employer] Required: No Beliefs That Will Affect Care: None Current Living Situation: Alone Other Information That Helps Us Care for You: No Feels Safe at Home: Yes Smoking Status: Never smoker Do You Dip or Chew Tobacco: No ; Second Hand Exposure: No ; Tobacco Cessation Education Requested by Patient: No Hx Alcohol Use: No Hx Substance Use: No Review of Systems Review of Systems: All systems reviewed & are unremarkable except as noted in HPI & below Physical Exam Physical Exam: General: no acute distress, obese Head: normocephalic, atraumatic Eyes: PERRL, EOM's intact, conjunctiva non-injected, anicteric ENT: normal inspection external ears, nose, mucous membranes moist Neck: supple, trachea midline Lungs: clear, no respiratory distress, no wheezing/rhonchi/rales CV: RRR, no murmur, no pretibial edema Abd: normal BS, soft, non-tender Ext: no cyanosis, no calf tenderness Neuro: A&O x 3, no focal deficits noted, normal affect Skin: warm, dry, right wrist with dressing in place is dry and intact Results & Data Vital Signs (Past 12 Hours) Vital Signs Temp Pulse Resp BP Pulse Ox 04/01/19 12:00 37.5 C 80 10 L 160/106 H 97 04/01/19 11:00 79 14 124/71 97 04/01/19 10:00 89 11 L 133/91 98 04/01/19 09:00 88 25 H 146/92 H 97 04/01/19 08:00 86 24 147/94 H 97 04/01/19 07:00 79 139/90 95 04/01/19 06:01 83 24 95 04/01/19 06:00 81 22 146/94 H 95 04/01/19 05:30 82 18 95 04/01/19 05:06 37.2 C 04/01/19 05:00 83 23 132/91 96 Laboratory Results Laboratory Results Short CBC 03/31/19 04/01/19 Range/Units 22:14 04:12 WBC 13.39 H 13.09 H (4.8-10.8) K/uL Hgb 17.0 15.8 (14.0-18.0) g/dL Hct 48.4 45.2 (42-52) % Plt Count 265 216 (130-400) K/uL BMP 03/31/19 04/01/19 22:14 04:12 Sodium 137 137 Potassium 3.6 4.0 Chloride 102 104 Carbon Dioxide 28 26 BUN 18 15 Creatinine 0.94 0.64 D Glucose 138 H 97 Calcium 10.2 H 9.2 Cardiac Enzymes 03/31/19 04/01/19 04/01/19 Range/Units 22:14 04:12 09:57 Total Creatine Kinase 362 H (39-308) U/L CK-MB (CK-2) 9.6 H (0.5-3.6) ng/ml Troponin I 0.505 H* 37.100 H* 27.300 H* (0-0.045) ng/ml Liver Function 03/31/19 04/01/19 Range/Units 22:14 04:12 Total Bilirubin 0.4 0.6 (0.2-1) mg/dl Direct Bilirubin 0.2 (0-0.2) mg/dl AST 21 113 H (15-37) U/L ALT 31 40 (12-78) U/L Alkaline Phosphatase 79 67 (45-117) U/L Albumin 4.4 4.0 (3.4-5.0) gm/dl Urine 04/01/19 Range/Units 05:34 Urine Color Yellow Urine Appearance Clear (Clear) Urine pH 6.5 (4.5-7.5) Ur Specific [place] 1.037 H (1.000-1.030) Urine Protein Negative (Negative) Urine Glucose (UA) Negative (Negative) Code Status & VTE Plan VTE Prophylaxis Plan VTE Prophylaxis will be ordered: Yes Supervising Physician Co-Signing Physician Notes Attending Addendum: care coordinated with YEIMI Hansen please refer to her notes for full details, I agree with her notes patient seen and examined, records reviewed by myself as well on exam, patient seen sitting up in bed, comfortable, just had dinner chest pain free, no dyspnea, dizziness, palpitations states he feels much better no other symptoms VS noted and reviewed oriented x3 , not in distress, speaks in sentences with no effort nor accessory muscle use normal rate, regular rhythm, no murmurs clear breath sounds bilaterally non distended, soft, nontender no bipedal edema, erythema, warmth no neuro deficits Crea 0.64 trop 27 ASSESSMENT AND PLAN STEMI transfer of service from Nursery Technician to Hospitalist service chest pain free, stable overall Metoprolol, Lisinopril being titrated on ASA, Brillinta, Lipitor HTN Nitropaste added monitor other diagnoses and plan of care as per YEIMI Hansen notes Jose Reilly MD
[2019-04-02] MEDS ORDERED: METOPROLOL SUCC 50MG EXT REL TAB PO ONE (10:20)
--- NOTE | 2019-04-02 10:24 | Cardiology Progress Note ---
Date of Service April 02, 2019 Assessment & Plan (1) ST elevation (STEMI) myocardial infarction: 58-year-old male with cardiac risk factors as outlined who presented with stuttering chest discomfort of 3 to 4 days duration and clinical and EKG had evidence of acute anteroseptal myocardial infarction in ER with duration of severe symptoms of 3 to 4 hours Cardiac catheterization demonstrated single-vessel occlusive disease with proximal LAD occlusion and underwent successful coronary intervention Plan optimization of cardiac medications Continue antiplatelet therapy with Brilinta and aspirin, change metoprolol to metoprolol succinate 50 mg twice daily Continue lisinopril appropriately dose statin Discontinue topical nitrates Ambulate in room and hallway Cardiac rehab Recommend off work x2 weeks Echocardiogram reviewed demonstrating significant septal and apical area of severe hypokinesis to akinesis with expansion of the septum and apex EF 35 to 40% We will continue medications as ordered with addition of topical nitrates for hypertension control anticipate at least additional 24 hours hospital stay (2) Hypertension: (3) Hyperlipemia: Subjective Patient seen and examined, chart, medications, telemetry reviewed. No chest pain or discomfort overnight. Ambulatory in room. Tolerating current medications well heart rates still running slightly higher in 80s and 90s when out of bed in chair No fevers chills no bleeding issues. No melena medication dysuria hematuria. Weight is stable no edema orthopnea Physical Exam Constitutional: WD/WN, vitals as above + obese; no acute distress Eyes: PERRL, conjunctivae normal, anicteric sclerae ENMT: external ear and nose normal, oropharynx normal Neck: trachea midline, no thyromegaly + thick neck Respiratory: normal respiratory effort, lungs clear to auscultation Cardiovascular: Rate/Rhythm: regular rate and regular rhythm Heart Sounds: normal S1 and normal S2; no gallop and no murmur Palpation: normal PMI Vessels: normal carotid upstroke and radial pulses present (Radial access site healing); no JVD and no carotid bruit Extremities: no edema Gastrointestinal (Abdomen): normal bowel sounds, soft, nontender, no hepatosplenomegaly Musculoskeletal: no cyanosis or clubbing, extremities motor strength 5/5 Skin: no rashes, warm and dry Neurologic: PERRL, EOMI, accommodation nl, no face palsy, no dysarthria Psychiatric: A+Ox3, euthymic affect Results & Data Vital Signs (Past 12 Hours) Vital Signs Temp Pulse Resp BP BP Pulse Ox 04/02/19 07:29 36.7 C 80 18 118/78 99 04/02/19 04:07 36.4 C L 74 19 121/72 97 04/01/19 23:26 37.0 C 77 19 118/77 98 Laboratory Results Laboratory Results - last 24 hr 04/01/19 04/01/19 04/01/19 09:57 11:50 13:45 WBC RBC Hgb Hct MCV MCH MCHC RDW Std Deviation RDW Coeff of Summer Plt Count MPV Sodium Potassium Chloride Carbon Dioxide Anion Gap BUN Creatinine Est Cr Clr Drug Dosing Est GFR ( Amer) Est GFR (Non-Af Amer) BUN/Creatinine Ratio Glucose POC Glucose 137 H 117 H Calcium Troponin I 27.300 H* 04/01/19 04/01/19 04/02/19 16:48 20:50 05:24 WBC 9.83 RBC 4.73 Hgb 14.7 Hct 43.5 MCV 92.0 MCH 31.1 MCHC 33.8 RDW Std Deviation 45.7 RDW Coeff of Summer 13.5 Plt Count 182 MPV 10.3 Sodium Potassium Chloride Carbon Dioxide Anion Gap BUN Creatinine Est Cr Clr Drug Dosing Est GFR ( Amer) Est GFR (Non-Af Amer) BUN/Creatinine Ratio Glucose POC Glucose 154 H 97 Calcium Troponin I 04/02/19 04/02/19 05:24 07:18 WBC RBC Hgb Hct MCV MCH MCHC RDW Std Deviation RDW Coeff of Summer Plt Count MPV Sodium 139 Potassium 3.8 Chloride 106 Carbon Dioxide 26 Anion Gap 6.0 BUN 16 Creatinine 0.65 Est Cr Clr Drug Dosing 167.6 Est GFR ( Amer) 124.3 Est GFR (Non-Af Amer) 107.2 BUN/Creatinine Ratio 24.7 H Glucose 78 POC Glucose 75 Calcium 9.2 Troponin I
[2019-04-02] MEDS ORDERED: METOPROLOL SUCC 25MG EXT REL TAB PO ONE (10:45)
--- NOTE | 2019-04-02 12:22 | Hospitalist Progress Note ---
Date of Service April 02, 2019 Assessment & Plan (1) ST elevation (STEMI) myocardial infarction: STEMI S/P Cardiac cath, S/P DAVID to LAD on 03/31/19 ECHO: Moderate concentric LVH; apical, septal, anteroseptal, anterior, & inferior wall motion abnormality with hypokinesis to akinesis of the segments; mild septal & apical expansion, basilar section contract normally; EF: 35-40% Continue aspirin, Brilinta, metoprolol, lisinopril, statin Appreciate cardiology input Monitor on telemetry (2) Hypertension: BP stable Continue metoprolol, Lisinopril (3) Hyperlipemia: Continue statin (4) Diabetes mellitus: DM II A1c: 6.2 on 04/01/19 Hold home metformin, Ozempic, Basaglar Continue ISS, Basal insulin Monitor BGs DVT Px SCDs CODE STATUS Full code Disposition Expected discharge home when stable Subjective Patient seen and examined at bedside Pain much bilaterally Denies any shortness of breath, chest pain, nausea, abdominal pain Feels tired with ambulation Transient dizziness earlier today which resolved Offers no other complaints Review of Systems Review of Systems: All systems reviewed & are unremarkable except as noted in HPI & below Physical Exam Physical Exam: Physical Exam: Vitals signs as noted above General Appearance:Obese, no apparent distress Head: normocephalic, Atraumatic Eyes: normal inspection, EOMI Neck: supple, Trachea midline Respiratory/Chest: Normal breath sounds, CTA Cardiovascular: S1, S2, No murmur Abdomen/GI:Soft, Non tender, Bowel sounds present Extremities/Musculoskelatal:normal inspection, Trace edema Neurologic/Psych:AAOX3, grossly no focal neurological deficits Skin: normal color, warm Results & Data Vital Signs (Past 12 Hours) Vital Signs Temp Pulse Resp BP BP Pulse Ox 04/02/19 11:10 37.1 C 79 22 132/75 95 04/02/19 07:29 36.7 C 80 18 118/78 99 04/02/19 04:07 36.4 C L 74 19 121/72 97 Laboratory Results Short CBC 04/02/19 Range/Units 05:24 WBC 9.83 (4.8-10.8) K/uL Hgb 14.7 (14.0-18.0) g/dL Hct 43.5 (42-52) % Plt Count 182 (130-400) K/uL BMP 04/02/19 05:24 Sodium 139 Potassium 3.8 Chloride 106 Carbon Dioxide 26 BUN 16 Creatinine 0.65 Glucose 78 Calcium 9.2
[2019-04-02] MEDS ORDERED: PHARMACY GLYCEMIC MGMT CONSULT PRN (15:12)
--- NOTE | 2019-04-02 15:25 | Pharmacy Report ---
Glycemic Control Consultation - Date of Service April 02, 2019 - Scope Scope: Glycemic Pharmacist consulted by Dr Tamayo on 04/02/19 for glycemic control and to write orders per [facility] inpatient glycemic control protocol - Objective Weight: 129.7 kg Accuchecks BSG (last 24hrs): 04/01/19 04/01/19 04/02/19 16:48 20:50 05:24 Glucose 78 POC Glucose 154 H 97 04/02/19 04/02/19 07:18 11:14 Glucose POC Glucose 75 98 Laboratory Data (last 24hrs): 04/02/19 05:24 Potassium 3.8 Carbon Dioxide 26 Anion Gap 6.0 Creatinine 0.65 Est Cr Clr Drug Dosing 167.6 HbA1c: Hemoglobin A1c 6.2 % (4.5-5.6) H 04/01/19 00:07 - Recent Pertinent Medications Outpatient Anti-diabetic Regimen: * Basaglar 48 units SQ BID * A1c = 6.2 % 04/01/19 The patient is currently receiving: * Basal insulin: Lantus 23 units every 12 hours * Correctional Insulin: Novolog Correction per scale ACHS Goal Range: Low 110 mg/dL - High 140 mg/dL Correction Factor: 15 mg/dL/unit * Prandial insulin: Per carb ratio of 1 unit per 5 grams CHO consumed * Oral Agents: Risk Factors for Insulin Resistance: * Diet: Regular - Assessment & Plan Assessment & Plan: ASSESSMENT: * Mr Acosta is a 58 y/o M with extremely well controlled T2DM who presents with a STEMI. Pharmacy requested consult around 1500 today after noticing patient has received only basal insulin while in house. Yesterday patient received 46 units of basal insulin -- blood sugars were 104,137,117,154,97 and this morning blood sugar was 75 with lunch of 96 mg/dL. * Patient already received 23 units of Lantus today. Cut additional Lantus as patient may only require 50 units of insulin per day. Loosen Novolog to weight-based stress of 2. * Plan discussed with nursing staff. PLAN FOR INPATIENT GLYCEMIC CONTROL: * Basal insulin -- hold for now reevaluate 04/03/19 * Bolus insulin * NovoLog per scale ACHS or Q6hrs while NPO * Goal Range: Low 120 mg/dL - High 160 mg/dL * Correction Factor: 30 mg/dL/unit * Nutritional / Prandial insulin per carb ratio of 1 unit per 10 grams CHO consumed Outpatient recommendations * Patient's regimen extremely basal heavy as an outpatient with strict control. Patient may be hypoglycemic at home. * Recommend working with PCP to add Novolog to largest meal of day. Then can decrease Basaglar. * With Cardiac history, patient may benefit from addition of SGLT-2 inhibitor. Thank you.
[2019-04-02] MEDS ORDERED: INSULIN GLARGINE SOLOSTAR 100 UNITS/ML 3 ML PEN SC SCH (21:00)
[2019-04-02] MEDS: METOPROLOL SUCC 50MG EXT REL TAB PO SCH (22:00)
[2019-04-03 06:26] LABS: BUN Creatinine Ratio 21.4 (10-20); Calcium 8.7 mg/dl (8.5-10.1); Creatinine Clr Calc Pharmacy 165.1 ml/min; Est GFR (African American) 123.5; Est GFR (Non-African American) 106.6; Potassium 3.9 mmol/L (3.5-5.1)
[2019-04-03] MEDS: METOPROLOL TARTRATE 25 MG TAB PO SCH (08:20)
[2019-04-03] MEDS: lisinopriL 5 MG TAB PO SCH (08:51)
[2019-04-03] MEDS: TICAGRELOR 90 MG TAB PO SCH (08:51)
[2019-04-03] MEDS: METOPROLOL SUCC 50MG EXT REL TAB PO SCH (08:52)
[2019-04-03] MEDS: ASPIRIN 81 MG ECTAB PO SCH (08:52)
[2019-04-03] MEDS: ATORVASTATIN 40 MG TAB PO SCH (08:53)
[2019-04-03] MEDS: INSULIN ASPART 100 UNITS/ML 3 ML PEN SC SCH ×2 (09:04→12:18)
--- NOTE | 2019-04-03 09:33 | Cardiology Progress Note ---
Date of Service April 03, 2019 Assessment & Plan (1) ST elevation (STEMI) myocardial infarction: 58-year-old male with cardiac risk factors as outlined who presented with stuttering chest discomfort of 3 to 4 days duration and clinical and EKG had evidence of acute anteroseptal myocardial infarction in ER with duration of severe symptoms of 3 to 4 hours Cardiac catheterization demonstrated single-vessel occlusive disease with proximal LAD occlusion and underwent successful coronary intervention Plan: Patient on optimal medical regimen of cardiac medications for treatment for acute anteroseptal myocardial infarction Continue antiplatelet therapy with Brilinta and aspirin, metoprolol succinate 50 mg twice daily Continue lisinopril appropriately dose statin Cardiac rehab Recommend off work x2 weeks Echocardiogram reviewed demonstrating significant septal and apical area of se reyna hypokinesis to akinesis with expansion of the septum and apex EF 35 to 40% Patient stable for discharge to home today Discussed signs of fluid retention and edema. Need for ongoing medical therapies Follow-up cardiology 1 to 2 weeks time (2) Hypertension: (3) Hyperlipemia: Subjective Patient seen and examined, chart, medications, telemetry reviewed. Patient denies chest pains, shortness of breath, dizziness, lightness. Notes no tachypalpitations syncope or near syncope. Telemetry reveals no arrhythmias. Patient ambulatory in the hallway. No bleeding difficulties melena hematochezia Review of Systems Review of Systems: All systems reviewed & are unremarkable except as noted in HPI & below Physical Exam Constitutional: WD/WN, vitals as above + obese; no acute distress Eyes: PERRL, conjunctivae normal, anicteric sclerae ENMT: external ear and nose normal, oropharynx normal Neck: trachea midline, no thyromegaly + thick neck Respiratory: normal respiratory effort, lungs clear to auscultation Cardiovascular: Rate/Rhythm: regular rate and regular rhythm Heart Sounds: normal S1 and normal S2; no gallop and no murmur Palpation: normal PMI Vessels: normal carotid upstroke and radial pulses present (Radial access site healing); no JVD and no carotid bruit Extremities: no edema Gastrointestinal (Abdomen): normal bowel sounds, soft, nontender, no hepatosplenomegaly Musculoskeletal: no cyanosis or clubbing, extremities motor strength 5/5 Skin: no rashes, warm and dry Neurologic: PERRL, EOMI, accommodation nl, no face palsy, no dysarthria Psychiatric: A+Ox3, euthymic affect Results & Data Vital Signs (Past 12 Hours) Vital Signs Temp Pulse Resp BP Pulse Ox 04/03/19 08:07 36.9 C 83 16 122/81 98 04/03/19 03:12 36.9 C 82 18 117/68 95 04/02/19 23:21 37.1 C 88 20 120/66 97 Laboratory Results Laboratory Results - last 24 hr 04/02/19 04/02/19 04/02/19 11:14 16:35 21:07 Sodium Potassium Chloride Carbon Dioxide Anion Gap BUN Creatinine Est Cr Clr Drug Dosing Est GFR ( Amer) Est GFR (Non-Af Amer) BUN/Creatinine Ratio Glucose POC Glucose 98 89 92 Calcium 04/03/19 04/03/19 05:16 07:33 Sodium 137 Potassium 3.9 Chloride 105 Carbon Dioxide 25 Anion Gap 7.0 BUN 14 Creatinine 0.66 Est Cr Clr Drug Dosing 165.1 Est GFR ( Amer) 123.5 Est GFR (Non-Af Amer) 106.6 BUN/Creatinine Ratio 21.4 H Glucose 95 POC Glucose 91 Calcium 8.7
--- NOTE | 2019-04-03 12:37 | Hospitalist Progress Note ---
Date of Service April 03, 2019 Assessment & Plan (1) ST elevation (STEMI) myocardial infarction: STEMI S/P Cardiac cath, S/P DAVID to LAD on 03/31/19 ECHO: Moderate concentric LVH; apical, septal, anteroseptal, anterior, & inferior wall motion abnormality with hypokinesis to akinesis of the segments; mild septal & apical expansion, basilar section contract normally; EF: 35-40% Continue aspirin, Brilinta, metoprolol, lisinopril, statin Appreciate cardiology input Monitor on telemetry Needs follow up with Cardiology in 2 weeks (2) Hypertension: BP stable Continue metoprolol, Lisinopril (3) Hyperlipemia: Continue statin (4) Diabetes mellitus: DM II A1c: 6.2 on 04/01/19 Hold home metformin, Ozempic, Basaglar Continue ISS, Basal insulin Monitor BGs DVT Px SCDs CODE STATUS Full code Disposition Expected discharge home when stable Subjective Patient seen and examined at bedside Doing well today No new complaints Walked in hallway, no issues Denies any shortness of breath, chest pain, nausea, abdominal pain, dizziness Discussed with Cardiology today Review of Systems Review of Systems: All systems reviewed & are unremarkable except as noted in HPI & below Physical Exam Physical Exam: Physical Exam: Vitals signs as noted above General Appearance:Obese, no apparent distress Head: normocephalic, Atraumatic Eyes: normal inspection, EOMI Neck: supple, Trachea midline Respiratory/Chest: Normal breath sounds, CTA Cardiovascular: S1, S2, No murmur Abdomen/GI:Soft, Non tender, Bowel sounds present Extremities/Musculoskelatal:normal inspection, Trace edema Neurologic/Psych:AAOX3, grossly no focal neurological deficits Skin: normal color, warm Results & Data Vital Signs (Past 12 Hours) Vital Signs Temp Pulse Resp BP Pulse Ox 04/03/19 11:18 36.9 C 76 16 133/70 95 04/03/19 08:07 36.9 C 83 16 122/81 98 04/03/19 03:12 36.9 C 82 18 117/68 95 Laboratory Results [facility] 04/03/19 05:16 Sodium 137 Potassium 3.9 Chloride 105 Carbon Dioxide 25 BUN 14 Creatinine 0.66 Glucose 95 Calcium 8.7
--- NOTE | 2019-04-03 12:48 | Discharge Summary ---
Date of Service April 03, 2019 Admission HPI Per Admitting Provider Pt is 58 y/o M with PMH HTN, dyslipidemia, DM II who had presented to ER on 03/31/19 for CP and found to have STEMI and was taking emergently to director of cath lab. S/P DAVID to LAD. Today 04/01/19, Pt seen and examined. Sitting up eating dinner. Reports currently is feeling good. Denies any CP, SOB, dizziness, palpitations, N/V. Reports small BM this morning. Denies fever/chills, diaphoresis, diarrhea, ELISE, syncope, vision changes, neck pain, orthopnea, cough, sore throat, choking, otalgia, rhinorrhea, abdominal pain, paresthesias, weakness, extremity weakness, extremity edema, rashes, urinary symptoms. Admission Exam Per Admitting Provider General: no acute distress, obese Head: normocephalic, atraumatic Eyes: PERRL, EOM's intact, conjunctiva non-injected, anicteric ENT: normal inspection external ears, nose, mucous membranes moist Neck: supple, trachea midline Lungs: clear, no respiratory distress, no wheezing/rhonchi/rales CV: RRR, no murmur, no pretibial edema Abd: normal BS, soft, non-tender Ext: no cyanosis, no calf tenderness Neuro: A&O x 3, no focal deficits noted, normal affect Skin: warm, dry, right wrist with dressing in place is dry and intact Principal Diagnosis STEMI Discharge Data Allergies Allergy/AdvReac Type Severity Reaction Status Date / Time No Known Allergies Allergy Verified 03/31/19 22:15 Consultations 03/31/19 23:20 Consult Internal Medicine Routine 03/31/19 23:26 Consult Cardiac Rehabilitation Routine 03/31/19 23:30 Consult Case Management - Discharge Planning Routine Consult Bulk Tank Car Unloader Routine 04/01/19 16:15 Consult Internal Medicine Routine Procedures Performed Operation Date: 03/31/19 10:30 Actual Procedures s Cineradiography w/Routine Exam - Michael Baker MD p Aspiration/PCI w/DAVID for Stemi - Michael Baker MD s Cath, Left with Cors and Vent - Michael Baker MD Cardiac catheterization: 1. Successful angioplasty drug-eluting stent placement. Recommendations were dual antiplatelet therapy for 1 year, DAPT score beyond that. 2. Routine medical therapy post-ST elevated myocardial infarction, evaluation of LV systolic function. ECHO: Moderate concentric LVH; apical, septal, anteroseptal, anterior, & inferior wall motion abnormality with hypokinesis to akinesis of the segments; mild septal & apical expansion, basilar section contract normally; EF: 35-40% CXR: Borderline cardiomegaly with volume overload and early congestive change. No zhao pulmonary edema. Ordered Studies 03/31/19 22:28 CL Cath Imgs for PACS use only Stat Hospital Course (1) ST elevation (STEMI) myocardial infarction: STEMI S/P Cardiac cath, S/P DAVID to LAD on 03/31/19 ECHO: Moderate concentric LVH; apical, septal, anteroseptal, anterior, & inferior wall motion abnormality with hypokinesis to akinesis of the segments; mild septal & apical expansion, basilar section contract normally; EF: 35-40% Continue aspirin, Brilinta, metoprolol, lisinopril, statin Appreciate cardiology input Monitor on telemetry Needs follow up with Cardiology in 2 weeks (2) Hypertension: BP stable Continue metoprolol, Lisinopril (3) Hyperlipemia: Continue statin (4) Diabetes mellitus: DM II A1c: 6.2 on 04/01/19 Hold home metformin, Ozempic, Basaglar Continue ISS, Basal insulin Monitor BGs DVT Px SCDs CODE STATUS Full code Disposition Expected discharge home when stable Total Time Total Time Spent Total Time Spent (In Minutes): 45 minutes Total Time Includes: Examination of the Patient, Discharge Planning, Medication Reconciliation, Communication With Other Providers and Other Discharge Plan Discharge Items Patient Disposition: Home - Self-Care Reason For Visit: STEMI Discharge Diagnosis: Acute myocardial infarction Condition on Discharge: Good Activity: Per Instructions section Lifting: Wait until after follow-up appointment Exercise/Sports: Gradually increase as tolerated Non-emergency contact: Primary Care Provider and Fairing Worker Call non-emergency contact if: you have any medication questions, your symptoms worsen, your pain is not controlled, your pain is worsening, your pain is unusual for you, your pain is concerning for you and you have a fever Follow-up/Referrals: Omar Bonner MD [Primary Care Provider] - Diet: Carb Consistent or DM2 and Heart Healthy Addtl Attending Provider Instructions: Follow-up with your primary care physician Dr. Bonner on April 07, 2019 at 8:45 AM Follow-up with your garbage pick up worker Dr. Mcbride on April 13, 2019 at 9:45 AM Monitor your blood sugar levels at home for any Low/High blood glucose levels. Discussed with your physician for adjustment of your insulin and diabetic medications. Seek immediate medical attention if your symptoms reoccur or worsen Home Care: * Take your medications exactly as directed. Don't skip doses. * Remember that recovery after a heart attack takes time. Plan to rest for at lease 4-8 weeks while you recover. Then return to normal activity when your doctor says it's okay. * Ask your doctor about joining a heart rehabilitation program. * Tell your doctor if you are feeling depressed. Feelings of sadness are common after a heart attack, but it is important that you speak to someone if you are feeling overwhelmed by these feelings. * If you are having chest pain, call 911 for an ambulance. Do NOT drive yourself to the hospital. * Ask your family members to learn CPR. * Learn to take your own blood pressure and pulse. Keep a record of your results. Ask your doctor when you should seek emergency medical attention. He or she will tell you which blood pressure reading is dangerous. Lifestyle Changes: * Maintain a healthy weight. Get help to lose any extra pounds. * Cut back on salt. * Limit canned, dried, packaged, and fast foods. * Don't add salt to your food. * Season foods with herbs instead of salt when you cook. * Break the smoking habit. Enroll in a stop-smoking program to improve your chances of success. * Limit fatty foods. * Ask your doctor about having your lipid levels checked regularly. * Build up your activity according to your doctor's recommendation. * Ask your doctor when it's okay to resume sexual activity. * Tell your doctor about any erectile dysfunction (ED) medication you are taking. Some ED medications are not safe if you take certain heart medications. * Try to manage stress. Follow Up: It is important for you to keep your follow up appointments with your medical provider. Pending Studies at Discharge: No Stand-Alone Forms: Call Back Authorization, Work/School Release (ED), [email or web address], Smoking Cessation Medications and DC Order Prescriptions: New Brilinta 90 mg Tablet 90 mg PO BID 30 Days Qty: 60 RF: 1 atorvastatin 40 mg Tablet 40 mg PO QAM 30 Days Qty: 30 RF: 1 lisinopril [Zestril] 5 mg Tablet 5 mg PO BID 30 Days Qty: 60 RF: 1 metoprolol succinate 50 mg Tablet Extended Release 24 Hr 50 mg PO BID 30 Days Qty: 60 RF: 1 aspirin [Ecotrin Low Strength] 81 mg Tablet,Delayed Release (Dr/Ec) 81 mg PO QAM 30 Days Qty: 30 RF: 1 Continued acetaminophen [Tylenol Extra Strength] 500 mg Tablet 500 mg PO DIRECTED PRN (Reason: Pain) RF: 0 metformin 500 mg tablet extended release 24 hr 1,500 mg PO QAM RF: 0 Basaglar KwikPen U-100 Insulin 100 unit/mL (3 mL) insulin pen 48 unit subcut BID RF: 0 Ozempic 0.25 mg or 0.5 mg(2 mg/1.5 mL) pen injector 0.5 mg subcut WK RF: 0 Discontinued lisinopril 10 mg tablet 10 mg PO QPM RF: 0 rosuvastatin 20 mg tablet 20 mg PO QPM RF: 0 Discharge Orders: Discharge Order (Routine); Ordered 04/03/19 Ordered By: Liang Hawkins/Other Patient Handouts: Stent Coronary, Catheterization Cardiac, Cath Cardiac Dc Admission Data Admit Date/Time: 03/31/19 23:30 Attending Provider: Liang Tamayo Admit Provider: Michael Baker Primary Care Provider: Omar Bonner Other Providers: Francisco J Mcbride ; Bryan Suarez ; Liang Tamayo Other Interventions: Discharge Summary Assessment (RN) Last Done: 04/03/19 13:44 DC Date/Time DO NOT enter until pt leaves facility: 04/03/19 15:37
[2019-04-03] MEDS ORDERED: INSULIN GLARGINE SOLOSTAR 100 UNITS/ML 3 ML PEN SC ONE (21:00)
== END 2019-04-03 15:37 | disposition home or self-care (01) | DRG 247 ==
LOC: ED 21:37 → CC 22:43 → SUATTDRO 23:30 → 1E 23:30 → 2E 04-01 16:33